=== PATIENT | female | born 1960 | race Caucasian/White ===

== ENCOUNTER 2016-07-04 05:27 | Observation (INO) | payer OTHER ==
[2016-06-28 11:26] LABS: HEMATOCRIT 40.5 % (36.0-48.0); HEMOGLOBIN 13.6 g/dL (12.0-16.0)
[2016-06-28 11:39] LABS: BUN (BLOOD UREA NITROGEN) 11 MG/DL (6-23); CALCIUM, SERUM 10.1 MG/DL (8.5-10.4); CHLORIDE, SERUM 100 MMOL/L (96-112); CO2 (CARBON DIOXIDE) 30 MMOL/L (24-34); GFR AFRICAN AMERICAN 84 ML/MIN (>=60); GFR NON AFRICAN AMERICAN 72 ML/MIN (>=60); GLUCOSE, SERUM 335 MG/DL (60-99); POTASSIUM, SERUM 4.2 MMOL/L (3.5-5.3); SODIUM, SERUM 136 MMOL/L (135-148)
--- NOTE | ~2016-07-04 | OP ---
Record Of Operation [facility] [address] [place]. [address] NAME: SUAD UREÑA : 62 STATUS : ADM IN [facility]#: [id number] AGE: 55 ADM/REG DATE : 07/04/16 MR#: [id number] REPORT SERV DATE: 07/04/16 DICTATED BY: RODOLFO RUGGIERO DATE: 07/04/16 REPORT STATUS : Draft TRANSCRIBED BY: MODMargi DATE: 07/04/16 DATE OF PROCEDURE: 07/04/2016 PREOPERATIVE DIAGNOSIS: Cervical spinal stenosis with disk herniation and radiculopathy at C6-7 on the left. POSTOPERATIVE DIAGNOSIS: Cervical spinal stenosis with disk herniation and radiculopathy at C6-7 on the left. PROCEDURE: 1. Microscopic and navigation-assisted surgery. 2. Anterior cervical diskectomy and foraminotomy, C6-7. 3. Anterior interbody cortical cancellous allograft, C6-7. 4. Anterior instrumentation with Venture plating, C6-7. SAND M[employer] OPERATOR FACING SAND: Gus Gresham. ANESTHESIA: General. ESTIMATED BLOOD LOSS: 10 mL. INDICATIONS FOR SURGERY: This is a 55-year-old female with neck shoulder and left arm pain. It has been intractable for several weeks and has been worsening quickly. The patient has had time, medication, and therapy, but nothing has helped. She has had plain x-rays, which revealed spondylosis particularly at C6-7. MRI shows stenosis and some soft disk herniation with a disk osteophyte complex, but there is some moderate degree of cord compression on the left side, but the foramina is severely narrowed on the left. With failure of conservative care and with the above findings, the patient was brought to surgery for the above procedure. Prior to surgery, risks, benefits, alternatives, and expectations had been explained in detail. Please note, also because of her large body habitus and the need to identify correct level of surgery intraoperatively as well as desire to carry out the safest and most precise dissection with least amount of radiation exposure, I feel the intraoperative navigation is mandatory. DESCRIPTION OF PROCEDURE: After identifying the patient in the preop holding area, antibiotic prophylaxis was given. Neurophysiology monitoring leads were inserted. The patient was brought to the operative suite. General anesthetic including endotracheal intubation was administered. She was placed supine on fluoroscopic Ash spine frame. Bony prominences were carefully padded. A small bolster was placed behind the shoulders. The scalp was painted with Betadine solution. [place] three-point fixation was attached to the skull using 60 pounds of torque in standard position. The [place] was attached to the Ash bed. The [employer] navigational registration frame was attached to the [place]. Isolation drapes were placed. The neck was scrubbed with Hibiclens solution. DuraPrep was Record Of Operation [address] [place]. [address] NAME: SUAD UREÑA : 62 STATUS : ADM IN PAT#: [id number] AGE: 55 ADM/REG DATE : 07/04/16 MR#: [id number] REPORT SERV DATE: 07/04/16 DICTATED BY: RODOLFO RUGGIERO DATE: 07/04/16 REPORT STATUS : Draft TRANSCRIBED BY: DANIEL DATE: 07/04/16 painted. Sterile drapes applied. Intraoperative CT scan with O-arm obtained, CT information used to register the navigational system. With navigational assistance, I identified C6-7. On the left side parallel to the disk space at C6-7, a 2.5 cm transverse skin incision using a Monroe-Lui technique was utilized. Platysma was incised in line with the skin incision. The superficial layer of the deep cervical fascia was released along the anterior border of the sternocleidomastoid. Blunt dissection was carried out to the retropharyngeal space where the longus colli muscles were subperiosteally elevated. After retractors were placed, the microscope was sterilely draped and used throughout the remainder of the procedure. With navigational assistance, we identified the left and right uncinate lateral boundary. A cutting mirlande was used to debride the an anterior osteophytes of the inferior C6 and superior C7. The disk space was widened with the [place] distractor pins that had been placed in the midbody. Diskectomy was carried out with curettes and rongeurs. As I moved from anterior to posterior, we continued to widen the disk space. The uncinate processes were very hypertrophied and we debrided those with a cutting bur as well as a 3 and 2 mm galina bur. The posterior longitudinal ligament was taken down and there was completely decompressing left side of the spinal cord and the foramen bilateral. Wide opening of the foramina was completed. The wound was irrigated. The width, depth, and height of the disk space was measured. A 7 mm wedge-shaped cortical cancellous allograft was inserted in the midline. Traction was released locking the graft in good position. Next, a 21 mm Venture plate was placed over the anterior bodies of C6 and C7. The four holes were drilled. The locking screws inserted providing rigid stability. Wounds were irrigated. No bleeding was noted. Intraoperative CT scan with O-arm was repeated due to the fact that we could not see on a regular C-arm image below C5. The intraoperative CT scan identified surgery had been at the C6-7 level and that there was good position of the implants and good religious of disk height. There was no bleeding or any abnormality. No drain was felt necessary. The platysma was closed with a running 3-0 Vicryl suture, subcutaneous tissue was closed with 3-0 Vicryl suture, and subcuticular 4-0 PDS suture was used for skin closure. Sterile dressings applied. The patient awakened, extubated, and taken to recovery room in satisfactory condition having tolerated the procedure well. KEITH/DANIEL Rodolfo Ruggiero D.O. / [id number] Record Of Operation [address] [address] NAME: SUAD UREÑA : 62 STATUS : ADM IN [facility]#: [id number] AGE: 55 ADM/REG DATE : 07/04/16 MR#: [id number] REPORT SERV DATE: 07/04/16 DICTATED BY: RODOLFO RUGGIERO DATE: 07/04/16 REPORT STATUS : Draft TRANSCRIBED BY: MODL DATE: 07/04/16 CC: Rodolfo Ruggiero D.O.
[~2016-07-04 05:27] MED LIST: AMARYL1 MG PO; BYSTOLIC20 MG PO; CLARIT10 PO; COZAAR100 MG PO; HUMALOG SC; INVOKANA300 MG PO; JANUMET1 TA1 PO; KLOR-CON 1010 MEQ PO; L40 PO; LANTUS SC; MOBIC15 MG PO; NORV25 PO; PRILOSEC40 MG PO; SYN112 PO; ULTRAM50 PO; VENTOLIN HFA INH; VIB100 PO; VITAMIN B-12 INJ IM; VITAMIN D1000 UNI1 PO
[2016-07-04 06:40] LABS: BUN (BLOOD UREA NITROGEN) 12 MG/DL (6-23); CALCIUM, SERUM 10.1 MG/DL (8.5-10.4); CHLORIDE, SERUM 101 MMOL/L (96-112); CO2 (CARBON DIOXIDE) 29 MMOL/L (24-34); CREATININE 0.88 MG/DL (0.55-1.02); GFR AFRICAN AMERICAN 86 ML/MIN (>=60); GFR NON AFRICAN AMERICAN 74 ML/MIN (>=60); GLUCOSE, SERUM 217 MG/DL (60-99); POTASSIUM, SERUM 4.6 MMOL/L (3.5-5.3); SODIUM, SERUM 136 MMOL/L (135-148)
[2016-07-04] MEDS ORDERED: LANTUSCART SC (16:17)
[2016-07-04] MEDS ORDERED: MAXIMUM D3 PO (16:23)
[2016-07-04] MEDS ORDERED: ACET500CAP PO (16:28)
[2016-07-04] MEDS ORDERED: TUMS E-X750 M2 PO (16:28)
[2016-07-04] MEDS ORDERED: MAGNESIUM CIT PO (16:29)
[2016-07-04] MEDS ORDERED: VISINE-A EYE AL15 ML OPH (16:30)
[2016-07-04] MEDS ORDERED: AFRIN15 NAS (16:31)
[2016-07-05] MEDS ORDERED: DIL4TAB PO (10:18)
[2016-07-05] MEDS ORDERED: METHOC500B PO (10:18)
== END 2016-07-05 12:22 | disposition home or self-care (01) ==
LOC: SDC 05:27 → SDC/OF 09:43 → 3SO 10:34
PROVIDERS: Orthopaedic Surgery Orthopaedic Surgery of the Spine
PROC: 0RG4070 Fusion of Cervicothoracic Vertebral Joint with Autologous Tissue Substitute, Anterior Approach, Anterior Column, Open Approach (ICD-10-PCS; 2016-07-04)
PROC: 0RG10A0 Fusion of Cervical Vertebral Joint with Interbody Fusion Device, Anterior Approach, Anterior Column, Open Approach (ICD-10-PCS; principal; 2016-07-04 07:15)
DX: M50.123 Cervical disc disorder at C6-C7 level with radiculopathy (principal); M48.02 Spinal stenosis, cervical region; G43.909 Migraine, unspecified, not intractable, without status migrainosus; I10 Essential (primary) hypertension; E78.5 Hyperlipidemia, unspecified; J45.909 Unspecified asthma, uncomplicated; M19.90 Unspecified osteoarthritis, unspecified site; K21.9 Gastro-esophageal reflux disease without esophagitis; K58.9 Irritable bowel syndrome, unspecified; E11.9 Type 2 diabetes mellitus without complications; E78.00 Pure hypercholesterolemia, unspecified; D64.9 Anemia, unspecified; E03.9 Hypothyroidism, unspecified; E66.01 Morbid (severe) obesity due to excess calories; Z90.49 Acquired absence of other specified parts of digestive tract; Z90.710 Acquired absence of both cervix and uterus; Z98.890 Other specified postprocedural states; Z87.891 Personal history of nicotine dependence
CPT/HCPCS: 80048; 82962; 85014; 85018; 87641; 88304; 88311; 93005; 96374; 96375; 96376; A9270-GY; C1713; C1768; G0378; J0690; J1170; J2250; J2405; J2710; J3010

== ENCOUNTER 2016-07-30 20:54 | Inpatient (IN) | payer OTHER ==
--- NOTE | ~2016-07-30 | EGD ---
EGD REPORT [facility] [address] [place]. [address] NAME: SUAD RAMIREZ : 62 STATUS : ADM Fish PAT#: [id number] AGE: 55 ADM/REG DATE : 07/30/16 MR#: [id number] REPORT SERV DATE: 08/02/16 DICTATED BY: JONATAN BIRMINGHAM DATE: 08/02/16 REPORT STATUS : Draft TRANSCRIBED BY: [employer] DATE: 08/02/16 [facility] Patient Name: Suad Ramirez Date of : 1960 Attending MD: JONATAN BIRMINGHAM, Procedure Date No Time: 08/02/2016 Procedure: Upper GI endoscopy Indications: Epigastric abdominal pain, Diarrhea, Nausea with vomiting Medicines: Propofol per Anesthesia Complications: No immediate complications. Estimated blood loss: None. Procedure: Pre-Anesthesia Assessment: - ASA Grade Assessment: IV - A patient with severe systemic disease that is a constant threat to life. After obtaining informed consent, the endoscope was passed under direct vision. Throughout the procedure, the patient's blood pressure, pulse, and oxygen saturations were monitored continuously. The GIF [id number] was introduced through the mouth, and advanced to the second part of duodenum. The upper GI endoscopy was accomplished with ease. The patient tolerated the procedure well. Findings: The examined esophagus was normal. The Z-line was found 42 cm from the incisors. Diffuse mild inflammation characterized by congestion (edema) and erythema was found in the gastric body and in the gastric antrum. Biopsies were taken with a cold forceps for histology. Estimated blood loss: none. The duodenal bulb and 2nd part of the duodenum were normal. Biopsies were taken with a cold forceps for evaluation of celiac disease. Estimated blood loss: none. Impression: - Normal esophagus. - Z-line 42 cm from the incisors. - Gastritis. Biopsied. - Normal duodenal bulb and 2nd part of the duodenum. Biopsied. Recommendation: - Return patient to [facility] for ongoing care. - Clear liquid diet today. - Continue present medications. - Tight control of blood glucose. Procedure Code(s): --- Professional --- EGD REPORT [facility] [address] [place]. [address] NAME: SUAD RAMIREZ : 62 STATUS : ADM Fish PAT#: [id number] AGE: 55 ADM/REG DATE : 07/30/16 MR#: [id number] REPORT SERV DATE: 08/02/16 DICTATED BY: JONATAN BIRMINGHAM DATE: 08/02/16 REPORT STATUS : Draft TRANSCRIBED BY: [employer] DATE: 08/02/16 [id number], Esophagogastroduodenoscopy, flexible, transoral; with biopsy, single or multiple Diagnosis Code(s): --- Professional --- K29.70, Gastritis, unspecified, without bleeding R10.13, Epigastric pain R19.7, Diarrhea, unspecified R11.2, Nausea with vomiting, unspecified CPT copyright 2013 [employer]. All rights reserved. The codes documented in this report are preliminary and upon icd 9 coder review may be revised to meet current compliance requirements. JONATAN BIRMINGHAM, 08/02/2016 1:41 PM This report has been signed electronically. Number of Addenda: 0 Note Initiated On: 08/02/2016 1:24 PM Scope Withdrawal Time 0 hours 0 minutes 0 seconds [address] [place] [address]
--- NOTE | ~2016-07-30 | IDS ---
Interim Discharge Summary [facility] [address] [place]. [address] NAME: SUAD UREÑA : 62 STATUS : ADM IN [facility]#: [id number] AGE: 55 ADM/REG DATE : 07/30/16 MR#: [id number] REPORT SERV DATE: 08/06/16 DICTATED BY: DATE: REPORT STATUS : Draft TRANSCRIBED BY: MODL DATE: 08/06/16 ADMISSION DATE: 07/30/2016 DISCHARGE DATE: The patient is admitted to the [facility]. CONSULTANTS: Dr. Do Umaña of Gastroenterology. CURRENT DIAGNOSES: 1. Intractable nausea and vomiting, epigastric abdominal pain, intermittent diarrhea- extensive evaluation, to be described below, nonrevealing of cause. Suspect gastric dysmotility and possible viral gastroenteritis/colitis. 2. Insulin-dependent diabetes mellitus type 2-uncontrolled with hemoglobin A1c 12.2. Improved control this admission. 3. Labile hypertension-with occasional systolic blood pressures in excess of 200, now improved. 4. Hypothyroidism-with elevated TSH, but normal free T4. Home levothyroxine dosage increased slightly this admission. 5. Recent cervical spine surgery for cervical spine degenerative disk disease. 6. History of asthma. 7. History of pancreatitis-no evidence of chronic pancreatic changes or acute pancreatitis this admission. 8. Low-grade temperature elevations-as high as 100 degrees. 9. History of arthritis. 10.Hypokalemia-improved with replacement. 11.Hypomagnesemia-improved with replacement. IMAGING AND DIAGNOSTICS: 1. Upper GI and small-bowel follow-through on 08/01 for intractable nausea and vomiting shows unremarkable appearance of the esophagus, stomach, and duodenum. Small bowel appears unremarkable. Small bowel transit time is normal at [address] abdomen and pelvis on 08/02 with contrast shows no acute GI or obstruction. Prior hysterectomy and prior cholecystectomy noted. No old films for comparison. Small amount of atelectasis in the left and right lung bases. 3. EGD on 08/[address] Do Umaña showed diffuse mild inflammation, characterized by congestion and erythema in the gastric body and gastric antrum. Biopsies were taken with cold forceps. Normal duodenal bulb and second part of the duodenum. 4. The patient also had CT abdomen and pelvis without contrast at [facility] prior to transfer, read with some mild nonspecific gastric wall thickening and no acute intra- abdominal process. PERTINENT LABORATORIES: Potassium values ranging from 2.9 to 3.7. Initial glucose values in the 300s, now consistently between 115 and 200. Creatinine value normal throughout the admission between 0.6 and 0.9. Liver enzymes normal. Amylase normal. Lipase normal. TSH 9.49 with free T4 of 1.05. Hemoglobin A1c 12.2. White blood cell counts ranging from 8.4 to 11, hemoglobin values normal, platelets 280 to 340. H pylori stool testing negative. Interim Discharge Summary [facility] [address] [address] NAME: SUAD UREÑA : 62 STATUS : ADM IN PAT#: [id number] AGE: 55 ADM/REG DATE : 07/30/16 MR#: [id number] REPORT SERV DATE: 08/06/16 DICTATED BY: DATE: REPORT STATUS : Draft TRANSCRIBED BY: MODL DATE: 08/06/16 Urinalysis on 07/31 showed trace ketones and glucose, but rare bacteria. No culture was obtained. Stool studies negative for C diff, negative for fecal white cells, negative stool culture. BRIEF HISTORY: For full details, please see the previously dictated history of present illness by Dr. Edison Chapin. This is a 55-year-old white female, who was accepted in transfer from [facility] where she had been admitted on 07/29 with intractable epigastric abdominal pain, nausea, vomiting, diarrhea. The patient reported that her symptoms had been present for approximately one month following cervical spine surgery with no specific precipitating or palliating factors. Her symptoms could not be controlled at [facility] with scheduled antiemetics, and a CT scan there was negative. She was felt to require higher level of care and GI evaluation, so was transferred to [facility] for this. HOSPITAL COURSE: The patient was admitted to [address] [place] [address] on IV fluids, p.r.n. antiemetics, and GI consultation was obtained. Dr. Do Umaña saw the patient on 07/31 and recommended an upper GI. This was done on 08/01 with results as above, normal. In the interim, stool studies were also obtained, and stool for H pylori was obtained as well. The stool studies were negative for any infectious causes of her symptoms. Dr. Umaña recommended an upper endoscopy on 08/02 again with relatively normal findings, except for some nonspecific gastritis. The patient was continued on her proton pump inhibitor at that point with recommendation to advance her diet. However, the patient continued to experience "excruciating" epigastric abdominal pain with any attempts at food more solid than liquids. Repeat CT abdomen and pelvis with contrast was obtained in this facility, again negative, and labs to include repeat lipase testing were not suggestive of an etiology of her symptoms. The patient does have a history of longstanding poorly controlled diabetes and there were upper GI series that did not suggest dysmotility, it is currently the most likely explanation for the patient's symptoms. The patient was placed on scheduled antiemetics and scheduled Phenergan for a period of time on 08/03 with marked improvement in her symptoms and essentially resolution of the epigastric pain, nausea, and vomiting. On 08/05, in order to avoid side effects associated with continuous Reglan therapy, this was changed to p.r.n. Her Phenergan was continued scheduled, and Zofran was changed to p.r.n. as the patient felt that the Phenergan was more effective for her. We attempted to advance her diet to soft, but she developed recurrent abdominal pain, nausea, vomiting on the evening of 08/05, carrying through to the morning of 08/06. When I evaluated her this morning, she looked unwell and stated that she was feeling "awful." At present, the nature of the recurrent symptoms is entirely unclear, unless it is related to gastroparesis or some other systemic issue. She did have a low-grade temperature elevation to 100 degrees overnight, so repeat urinalysis will be obtained as well as a chest Interim Discharge Summary [address] [address] NAME: SUAD UREÑA : 62 STATUS : ADM IN PAT#: [id number] AGE: 55 ADM/REG DATE : 07/30/16 MR#: [id number] REPORT SERV DATE: 08/06/16 DICTATED BY: DATE: REPORT STATUS : Draft TRANSCRIBED BY: MODL DATE: 08/06/16 x-ray. Given the normal stool studies and imaging thus far, there does not seem to be an acute indication for antibiotic therapy. In further discussion with the patient and her family, they would like a mesenteric Doppler obtained, which seems reasonable given the association of pain with oral intake. The patient has been treated this morning with recurrent doses of Phenergan, Zofran and we will restart p.r.n. Reglan and decrease her diet back to full liquids. DISPOSITION: To be determined by a colleague who will assume care of the patient tomorrow. LAZARUS/DANIEL Dain Rosa M.D. / [id number] CC: Kiana Thomas M.D.
--- NOTE | ~2016-07-30 | CN ---
Consultation Report [facility] [address] [place]. [address] NAME: SUAD RAMIREZ : 62 STATUS : ADM Fish PAT#: [id number] AGE: 55 ADM/REG DATE : 07/30/16 MR#: [id number] REPORT SERV DATE: 08/01/16 DICTATED BY: JONATAN UMAÑA DATE: 08/01/16 REPORT STATUS : Draft TRANSCRIBED BY: MODL DATE: 08/01/16 CONSULTATION DATE OF CONSULTATION: 07/31/2016 REASON FOR CONSULTATION: Nausea, vomiting, abdominal pain. HISTORY OF PRESENT ILLNESS: Ms. Ramirez is a 55-year-old female with a history of diabetes, hypertension, hypothyroidism, who presented with a several-day history of nausea, vomiting, abdominal pain. CT scan showed nondistended stomach, which was interpreted with increased wall thickening, but otherwise was negative. Liver enzymes have been normal. Lipase is normal. CBC is normal. TSH is rather elevated at 9.4, hemoglobin A1c is 12.2, and glucose at midnight was 250. She reports that she has episodes like this, but this has been the worst. She has never been diagnosed with gastroparesis. PAST MEDICAL HISTORY: Diabetes, hypertension, hypothyroidism, asthma. PAST SURGICAL HISTORY: Cervical diskectomy, , cholecystectomy, hysterectomy, tonsillectomy. ALLERGIES: NO KNOWN DRUG ALLERGIES. SOCIAL HISTORY: No smoking, alcohol, or drug use. FAMILY HISTORY: Diabetes, COPD, and coronary artery disease. PHYSICAL EXAMINATION: VITAL SIGNS: Patient is afebrile. Vital signs are stable. GENERAL: The patient is awake, alert, oriented x3, well developed, well nourished, in no acute distress. HEENT: Atraumatic, normocephalic. Anicteric. Mucous membranes moist. CARDIAC: S1, S2. CHEST: Clear. ABDOMEN: Soft, tender to palpation diffusely, but without any rebound or guarding. Bowel sounds normoactive. LABORATORY DATA: Reviewed as above. IMPRESSION AND PLAN: Nausea, vomiting, abdominal pain, edema, gastroparesis versus poorly controlled diabetes versus very elevated TSH of 9.4. CT scan reviewed with no acute changes. We will check an upper GI small bowel series for further evaluation, which is easy, although not as good as a substitute for a gastric emptying study. She has received medications that would affect a true gastric emptying study. Continue PPI. Will continue to follow with you. Consultation Report [facility] [id number] [place]. [address] NAME: SUAD RAMIREZ : 62 STATUS : ADM Fish PAT#: [id number] AGE: 55 ADM/REG DATE : 07/30/16 MR#: [id number] REPORT SERV DATE: 08/01/16 DICTATED BY: JONATAN UMAÑA DATE: 08/01/16 REPORT STATUS : Draft TRANSCRIBED BY: DANIEL DATE: 08/01/16 CS/DANIEL Jonatan Umaña MD / [id number] CC: Kiana Thomas M.D.
--- NOTE | ~2016-07-30 | HP ---
History And Physical [facility] [address] [place]. [address] NAME: SUAD RAMIREZ : 62 STATUS : ADM Fish PAT#: [id number] AGE: 55 ADM/REG DATE : 07/30/16 MR#: [id number] REPORT SERV DATE: 07/31/16 DICTATED BY: BRIAN ROSS DATE: 07/30/16 REPORT STATUS : Draft TRANSCRIBED BY: MODL DATE: 07/30/16 DATE OF ADMISSION: 07/30/2016 POINT OF ENTRY: Transfer from [facility] Inpatient Service. CHIEF COMPLAINT: Nausea, vomiting, and abdominal pain. HISTORY OF PRESENT ILLNESS: Ms. Ramirez is a 55-year-old female with history of insulin- dependent diabetes mellitus, type 2; hypertension; and hypothyroidism, who presents to the emergency department today with reports of intractable nausea, vomiting, abdominal pain, for the past three to four days. The patient recently underwent anterior cervical diskectomy and fusion by Dr. Muhammad in June. The patient states that since her surgery she has had troubles with persistent nausea and diarrhea with occasional episodes of emesis. She had been prescribed Zofran by Dr. Muhammad' office with some effect. Beginning on Saturday after she had a meal, she developed a 24 hour period of severe intractable nausea and vomiting with estimated emesis episodes every 30-45 minutes. On Saturday, she started to feel better and tried to eat some food, and unfortunately, that set off another episode of intractable nausea and vomiting that persisted until she presented to the [facility] Emergency Department on Saturday. After receipt of multiple antiemetics including Thorazine at [facility], the patient felt better and actually was quite sedated until awakening today when she again developed persistent nausea and vomiting prompting her transfer to [facility] for higher level of care for evaluation by Gastroenterology. 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 She does state she has uncontrolled diabetes mellitus, has pending endocrinology referral for uncontrolled insulin- dependent diabetes mellitus, type 2. Denies any known history of diabetic gastroparesis. The patient currently denies any fevers, night sweats, chills, chest pain, shortness of breath, cough, sputum production, wheezing, melena, hematochezia, hemoptysis, hematemesis, dysuria, and lower extremity edema. She does continue to report troubles with epigastric abdominal pain described as a burning in nature with associated nausea, vomiting, and profuse diarrhea. REVIEW OF SYSTEMS: Comprehensive review of systems otherwise negative unless listed in history of present illness. Initial evaluation at [facility] noted for a CT scan of the abdomen and pelvis that showed a nondistended thick walled stomach but otherwise the CT was unremarkable. Initial labs notable for a lipase that was within normal limits. Troponin was negative. EKG was negative. She did have a mild leukocytosis of 11,600. Her bicarb on her CMP was 18, but History And Physical [id number] [facility] [place]. [address] NAME: SUAD RAMIREZ : 62 STATUS : ADM Fish PAT#: [id number] AGE: 55 ADM/REG DATE : 07/30/16 MR#: [id number] REPORT SERV DATE: 07/31/16 DICTATED BY: BRIAN ROSS DATE: 07/30/16 REPORT STATUS : Draft TRANSCRIBED BY: DANIEL DATE: 07/30/16 otherwise, her transaminases were normal. She had an ABG performed for unclear reasons which showed a pH of 7.69 with a pCO2 of 18. She was started on IV fluids, antiemetics including Thorazine and IV Pepcid without given improvement and subsequently transferred over to our hospital. PREVIOUS MEDICAL HISTORY: 1. Uncontrolled insulin-dependent diabetes mellitus, type 2. Hemoglobin A1c is unknown at this time. 2. Hypertension. 3. Hypothyroidism. 4. Previous history of pancreatitis. 5. Asthma. 6. Cervical spinal stenosis with disk herniation radiculopathy. SURGICAL HISTORY: 1. . 2. Cholecystectomy. 3. Abdominal hysterectomy. 4. C6-C7 anterior cervical diskectomy and fusion. 5. Tonsillectomy. ALLERGIES: NO KNOWN DRUG ALLERGIES. HOME MEDICATIONS: Pending at time of dictation. SOCIAL HISTORY: Denies any tobacco, alcohol, or illicits. She currently works in [employer] for [employer]. FAMILY MEDICAL HISTORY: Mother with diabetes, COPD, and congestive heart failure. Father with osteoporosis. Siblings with various thyroid diseases including thyroid cancer. LABS AND IMAGING: All obtained from transfer records from [facility] Emergency Department. These were all admission labs and imaging from 02/29/2016: 1. White count 11.6, hemoglobin is 14.1, hematocrit is 43.0, and platelet count is 397. 2. Sodium is 136, potassium 3.4, chloride 94, carbon dioxide 18, BUN 18, creatinine 0.74, glucose is 392, calcium is 9.4, protein is 7.1, albumin is 3.9, bilirubin is 0.7, ALT is 15, AST 15, and alkaline phosphatase is 99. 3. Lipase is 51. 4. Troponin is negative. 5. ABG; pH is 7.69, pCO2 is 18, PO2 is 104, bicarb and base excess are not available to me at this time. 6. CT scan of the abdomen and pelvis shows a nondistended thick-walled stomach, but otherwise, no acute abdominal pelvic abnormality. PHYSICAL EXAMINATION: VITAL SIGNS: Temperature is 98.1 degrees Fahrenheit, pulse is 76, respirations 14, saturating 98% on room air, and blood pressure is 204/96. History And Physical [address] [address] NAME: SUAD RAMIREZ : 62 STATUS : ADM Fish PAT#: [id number] AGE: 55 ADM/REG DATE : 07/30/16 MR#: [id number] REPORT SERV DATE: 07/31/16 DICTATED BY: BRIAN ROSS DATE: 07/30/16 REPORT STATUS : Draft TRANSCRIBED BY: DANIEL DATE: 07/30/16 GENERAL: The patient is awake, alert, in no acute distress. Resting comfortably in bed. She is a well-developed, well-nourished, female. HEENT: Atraumatic and normocephalic. Slightly dry mucous membranes. Pupils are equal, round, reactive to light and accommodation. Extraocular eye movements intact. No scleral icterus. NECK: No jugular venous distention or carotid bruits. CARDIAC: Regular rate and rhythm. No murmurs or gallops. Normal S1, S2. LUNGS: Clear to auscultation bilaterally. No wheezes, rhonchi, or crackles. ABDOMEN: Soft, mildly tender to palpation over the epigastrium but otherwise no rebound, guarding, or rigidity. EXTREMITIES: Warm and perfused. No cyanosis, clubbing, or edema. SKIN: Warm and dry. PSYCH: Affect appropriate. NEURO: Alert and oriented x3. Cranial nerves 2 through 12 grossly intact. Speech is normal. Gait not assessed. ASSESSMENT: Ms. Ramirez is a 55-year-old female who presents with a three to four-day history of intractable nausea, vomiting, as well as epigastric abdominal pain in the setting of some chronic nausea and diarrhea. PROBLEM LIST: 1. Intractable nausea and vomiting. 2. Epigastric abdominal pain. 3. Diarrhea. 4. Insulin-dependent diabetes mellitus type 2 with hyperglycemia. 5. Hypertension. 6. Respiratory alkalosis. PLAN: 1. Intractable nausea and vomiting with abdominal pain. Differential is broad this time including esophagitis and gastritis as well as possible gastroparesis as well as possible food poisoning. Pancreatitis was essentially ruled out with CT pelvis as well as normal lipase at [facility]. She is status post cholecystectomy. We will consult Gastroenterology for assistance for likely upper endoscopy in the morning. Place the patient on PPI IV b.i.d. Provide supportive care with IV fluids, antiemetics, and pain control. Check EEG to be unremarkable. Workup for possible gastroparesis may need to be pursued. 2. Insulin-dependent diabetes mellitus type 2 with hyperglycemia, initially placed the patient on level 3 insulin sliding scale. Check hemoglobin A1c. Continue the patient's home long-acting insulin once confirmed by Pharmacy. 3. Respiratory alkalosis. Unclear etiology at this time. Repeating admission labs including ABG. 4. Hypertension. Continue patient's home medications once confirmed. In the meantime, IV hydralazine p.r.n. for elevated blood pressures. 5. Diarrhea. Checking stool studies including stool culture, C. diff, and ova parasites. 6. DVT prophylaxis. Lovenox subcu. History And Physical [address] [place]. [address] NAME: SUAD RAMIREZ : 62 STATUS : ADM Fish PAT#: [id number] AGE: 55 ADM/REG DATE : 07/30/16 MR#: [id number] REPORT SERV DATE: 07/31/16 DICTATED BY: BRIAN ROSS DATE: 07/30/16 REPORT STATUS : Draft TRANSCRIBED BY: DANIEL DATE: 07/30/16 CODE STATUS: The patient wished to be full code. IZZYB/MODL Brian Ross MD / [id number] CC: Kiana Jimenez M.D.
--- NOTE | ~2016-07-30 | DS ---
Discharge Summary [address] [place]. [address] NAME: SUAD UREÑA : 62 STATUS : DIS IN PAT#: [id number] AGE: 55 ADM/REG DATE : 07/30/16 MR#: [id number] REPORT SERV DATE: 08/13/16 DICTATED BY: DAKOTA DUNN DATE: 08/12/16 REPORT STATUS : Draft TRANSCRIBED BY: MODL DATE: 08/12/16 ADMISSION DATE: 07/30/2016 DISCHARGE DATE: 08/11/2016 DISCHARGE DIAGNOSES: 1. Intractable nausea and vomiting with epigastric abdominal pain and intermittent diarrhea. The patient has had extensive evaluation including upper GI and small bowel followthrough as well as CT of the abdomen and pelvis, EGD, and CT of the head, which were all very benign. EGD only showed erythema in the gastric body and gastric antrum. 2. Insulin-dependent diabetes type 2, uncontrolled, with hemoglobin A1c of 12.2. 3. Labile hypertension. 4. Hypothyroidism. 5. Recent cervical spine surgery for cervical spine degenerative disk disease. 6. History of asthma. 7. History of pancreatitis. 8. History of arthritis. 9. Hypokalemia and hypomagnesemia. 10.Low-grade temperatures without any evidence for ongoing infection. CONSULTANTS: Dr. Umaña of Gastroenterology. PROCEDURES: EGD which was performed on 08/02/2016. The EGD showed diffuse mild inflammation with congestion and erythema in the gastric body and gastric antrum. The patient had normal duodenal exam. HOSPITAL COURSE: This is a 55-year-old lady who was admitted to the hospital with intractable nausea, vomiting, and diarrhea as well as abdominal pain. The patient has had a fairly prolonged hospital stay; thus, please refer to H and P by Dr. Mp Chapin as well as interim discharge summary by Dr. Rosa. In summary, the patient was initially admitted with an observation due to the nausea, vomiting, and diarrhea. It has been almost impossible to control her nausea and vomiting during the whole time the patient has been here in the hospital. The patient has had extensive workup including upper GI and small- bowel followthrough as well as CT of the abdomen and pelvis and an EGD. The patient eventually also had CT of the head to rule out any possible central causes for nausea and vomiting. It is quite evident that there is a psychiatric component to the patient's intractable nausea and vomiting as the patient was seen to drink water just to be able to vomit on occasion. Nonetheless, the patient did have real episodes of nausea and vomiting that was uncontrolled. In the end, the patient's nausea and vomiting was controlled with scheduled IV Zofran as well as IV Phenergan and IV Reglan. The patient also was given Klonopin for baseline anxiety control along with Protonix. The patient was also given pain control for the abdominal pain. Eventually, with more counseling and more encouragement, the patient's nausea was able to be controlled somewhat. Every time, there was an attempt for discharge, the patient's symptoms would get worse and it has been a challenging hospital course to say the least. Medically, however, the patient has been very stable. The patient has remained afebrile and hemodynamically stable. The patient's labs have also been stable with no evidence of ongoing infection or any other hematologic or electrolytic disturbances. Discharge Summary [address] [address] NAME: SUAD UREÑA : 62 STATUS : DIS IN PAT#: [id number] AGE: 55 ADM/REG DATE : 07/30/16 MR#: [id number] REPORT SERV DATE: 08/13/16 DICTATED BY: DAKOTA DUNN DATE: 08/12/16 REPORT STATUS : Draft TRANSCRIBED BY: DANIEL DATE: 08/12/16 The patient did have a couple of episodes of elevated blood temperatures as well as elevated blood pressures along with nausea and vomiting episodes, but they were quick to subside once the patient's nausea and vomiting spell subsided. The patient is now being discharged home finally after such a prolonged hospital stay for symptomatic control of nausea and vomiting. The patient was seen by Dr. Umaña from GI, who actually recommended that the patient be followed with an outpatient clinic in [place] for her intractable nausea and vomiting. DISPOSITION: Home. DISCHARGE MEDICATIONS: 1. Zofran ODT 4 to 8 mg p.o. q.4 hours p.r.n. 2. Phenergan 6.25 to 12.5 mg p.o. q.4 hours p.r.n. 3. Scopolamine patch every 3 days. 4. Protonix 40 mg p.o. b.i.d. 5. Percocet 5/325 one tablet p.o. q.6 hours p.r.n. 6. Carafate 1 g p.o. with meals. 7. Klonopin 0.25 mg p.o. b.i.d. Otherwise, no medication changes. FOLLOWUP: 1. Please follow up with PCP in the next one to two weeks. 2. Please follow up with Dr. Umaña as instructed. 3. Please follow up with outpatient [place] [facility] as needed. A total of 40 minutes spent in coordinating this patient's discharge including extensive counseling regarding her nausea control at home. DICTATED BY: Dakota Dunn MD YSC/MODL Dakota Dunn MD / [id number] CC: MD Maty Fajardo M.D.
[~2016-07-30 20:54] MED LIST changes: +ACET500CAP PO; +AFRIN15 NAS; +DIL4TAB PO; +LANTUSCART SC; +MAGNESIUM CIT PO; +MAXIMUM D3 PO; +METHOC500B PO; +TUMS E-X750 M2 PO; +VISINE-A EYE AL15 ML OPH
[2016-07-30] MEDS ORDERED: METHOC500B PO (22:18)
[2016-07-30] MEDS ORDERED: ZOFRAN4 PO (22:19)
[2016-07-31 00:06] LABS: BASOPHILS 0.5 %; BASOPHILS ABSOLUTE 0.05 10/3/uL (0.0-0.16); EOSINOPHILS 0.3 %; EOSINOPHILS ABSOLUTE 0.03 10/3/uL (0.0-0.53); HEMATOCRIT 38.1 % (36.0-48.0); HEMOGLOBIN 12.6 g/dL (12.0-16.0); IMMATURE GRANULOCYTES 0.2 %; IMMATURE GRANULOCYTES ABSOLUTE 0.02 10/3/uL (0.0-0.11); LYMPHOCYTES 31.5 %; LYMPHOCYTES ABSOLUTE 3.11 10/3/uL (0.67-4.30); MEAN CORPUS HGB CONC 33.1 g/dL (32.0-36.0); MEAN CORPUSCULAR HEMOGLOB 28.8 pg (26.0-34.0); MEAN CORPUSCULAR VOLUME 87.2 fL (80-100); MONOCYTES 7.4 %; MONOCYTES ABSOLUTE 0.73 10/3/uL (0.21-1.20); NEUTROPHILS 60.1 %; NEUTROPHILS ABSOLUTE 5.92 10/3/uL (2.02-8.40); PLATELET COUNT 341 10/3/uL (150-400); RBC DISTRIBUTION WIDTH 12.7 % (12.0-16.0); RED CELL COUNT 4.37 10/6/uL (4.0-5.6); WHITE BLOOD CELLS 9.9 10/3/uL (4.5-10.5)
[2016-07-31 00:07] LABS: MANUAL DIFF NO %
[2016-07-31 00:18] LABS: A/G RATIO 0.8 (0.7-1.9); ALBUMIN 2.9 G/DL (3.5-5.0); ALKALINE PHOSPHATASE 97 U/L (45-117); BUN (BLOOD UREA NITROGEN) 10 MG/DL (6-23); CHLORIDE, SERUM 105 MMOL/L (96-112); CREATININE 0.84 MG/DL (0.55-1.02); FREE T4 1.05 NG/DL (0.76-1.46); GFR AFRICAN AMERICAN 91 ML/MIN (>=60); GFR NON AFRICAN AMERICAN 79 ML/MIN (>=60); GLOBULIN 3.6 G/DL (2.5-4.1); GLUCOSE, SERUM 249 MG/DL (60-99); POTASSIUM, SERUM 3.8 MMOL/L (3.5-5.3); SGOT(AST) 13 U/L (5-40); SGPT(ALT) 17 U/L (5-65); SODIUM, SERUM 137 MMOL/L (135-148); TOTAL BILIRUBIN 0.5 MG/DL (0-1.2); TOTAL PROTEIN 6.5 G/DL (6.0-8.5)
[2016-07-31 00:20] LABS: CALCIUM, SERUM 8.6 MG/DL (8.5-10.4); CO2 (CARBON DIOXIDE) 24 MMOL/L (24-34)
[2016-07-31 09:02] LABS: ASCORBIC ACID (UR NOT ORDER) NEG (NEG); BILIRUBIN, URINE NEGATIVE (NEG); KETONE, URINE TRACE MG/DL (NEG); LEUKOCYTE ESTERASE(NOT OR NEG (NEG); WBC (NOT ORDERED) (RFLEX) 2 (0-5)
[2016-08-01 05:36] LABS: BASOPHILS 0.5 %; BASOPHILS ABSOLUTE 0.04 10/3/uL (0.0-0.16); EOSINOPHILS 2.7 %; EOSINOPHILS ABSOLUTE 0.23 10/3/uL (0.0-0.53); HEMATOCRIT 37.6 % (36.0-48.0); HEMOGLOBIN 12.7 g/dL (12.0-16.0); IMMATURE GRANULOCYTES 0.2 %; IMMATURE GRANULOCYTES ABSOLUTE 0.02 10/3/uL (0.0-0.11); LYMPHOCYTES ABSOLUTE 3.71 10/3/uL (0.67-4.30); MANUAL DIFF NO %; MEAN CORPUS HGB CONC 33.8 g/dL (32.0-36.0); MEAN CORPUSCULAR HEMOGLOB 28.9 pg (26.0-34.0); MEAN CORPUSCULAR VOLUME 85.6 fL (80-100); MEAN PLATELET VOLUME 8.5 fL (9.2-13.0); MONOCYTES 7.7 %; MONOCYTES ABSOLUTE 0.65 10/3/uL (0.21-1.20); NEUTROPHILS 44.9 %; NEUTROPHILS ABSOLUTE 3.79 10/3/uL (2.02-8.40); PLATELET COUNT 286 10/3/uL (150-400); RBC DISTRIBUTION WIDTH 12.7 % (12.0-16.0); RED CELL COUNT 4.39 10/6/uL (4.0-5.6); WHITE BLOOD CELLS 8.4 10/3/uL (4.5-10.5)
[2016-08-01 05:46] LABS: CALCIUM, SERUM 9.4 MG/DL (8.5-10.4); CHLORIDE, SERUM 104 MMOL/L (96-112); CO2 (CARBON DIOXIDE) 24 MMOL/L (24-34); CREATININE 0.62 MG/DL (0.55-1.02); GFR AFRICAN AMERICAN 118 ML/MIN (>=60); GFR NON AFRICAN AMERICAN 102 ML/MIN (>=60); SODIUM, SERUM 139 MMOL/L (135-148)
[2016-08-01 05:47] LABS: BUN (BLOOD UREA NITROGEN) 5 MG/DL (6-23); GLUCOSE, SERUM 83 MG/DL (60-99); POTASSIUM, SERUM 2.9 MMOL/L (3.5-5.3)
[2016-08-02 05:22] LABS: BASOPHILS 0.1 %; BASOPHILS ABSOLUTE 0.01 10/3/uL (0.0-0.16); EOSINOPHILS 0 %; HEMATOCRIT 39.9 % (36.0-48.0); HEMOGLOBIN 13.8 g/dL (12.0-16.0); IMMATURE GRANULOCYTES 0.3 %; IMMATURE GRANULOCYTES ABSOLUTE 0.03 10/3/uL (0.0-0.11); LYMPHOCYTES 23.6 %; LYMPHOCYTES ABSOLUTE 2.59 10/3/uL (0.67-4.30); MEAN CORPUS HGB CONC 34.6 g/dL (32.0-36.0); MEAN CORPUSCULAR HEMOGLOB 29.1 pg (26.0-34.0); MEAN PLATELET VOLUME 8.9 fL (9.2-13.0); MONOCYTES 3.9 %; MONOCYTES ABSOLUTE 0.43 10/3/uL (0.21-1.20); NEUTROPHILS 72.1 %; NEUTROPHILS ABSOLUTE 7.93 10/3/uL (2.02-8.40); PLATELET COUNT 336 10/3/uL (150-400); RBC DISTRIBUTION WIDTH 12.7 % (12.0-16.0); RED CELL COUNT 4.75 10/6/uL (4.0-5.6)
[2016-08-02 05:29] LABS: MANUAL DIFF NO %
[2016-08-02 05:35] LABS: BUN (BLOOD UREA NITROGEN) 7 MG/DL (6-23); CALCIUM, SERUM 8.7 MG/DL (8.5-10.4); CHLORIDE, SERUM 100 MMOL/L (96-112); CO2 (CARBON DIOXIDE) 21 MMOL/L (24-34); CREATININE 0.75 MG/DL (0.55-1.02); GFR AFRICAN AMERICAN 105 ML/MIN (>=60); GFR NON AFRICAN AMERICAN 90 ML/MIN (>=60); GLUCOSE, SERUM 252 MG/DL (60-99); POTASSIUM, SERUM 3.4 MMOL/L (3.5-5.3); SODIUM, SERUM 134 MMOL/L (135-148)
[2016-08-03 05:07] LABS: A/G RATIO 0.7 (0.7-1.9); ALBUMIN 2.7 G/DL (3.5-5.0); ALKALINE PHOSPHATASE 94 U/L (45-117); BASOPHILS 0.4 %; BASOPHILS ABSOLUTE 0.04 10/3/uL (0.0-0.16); BUN (BLOOD UREA NITROGEN) 10 MG/DL (6-23); CALCIUM, SERUM 8.6 MG/DL (8.5-10.4); CHLORIDE, SERUM 102 MMOL/L (96-112); CO2 (CARBON DIOXIDE) 25 MMOL/L (24-34); CREATININE 0.87 MG/DL (0.55-1.02); EOSINOPHILS 1.1 %; EOSINOPHILS ABSOLUTE 0.11 10/3/uL (0.0-0.53); GFR AFRICAN AMERICAN 88 ML/MIN (>=60); GFR NON AFRICAN AMERICAN 76 ML/MIN (>=60); GLOBULIN 3.8 G/DL (2.5-4.1); GLUCOSE, SERUM 211 MG/DL (60-99); HEMATOCRIT 39.8 % (36.0-48.0); HEMOGLOBIN 13.2 g/dL (12.0-16.0); IMMATURE GRANULOCYTES 0.2 %; IMMATURE GRANULOCYTES ABSOLUTE 0.02 10/3/uL (0.0-0.11); LYMPHOCYTES 41.6 %; MEAN CORPUS HGB CONC 33.2 g/dL (32.0-36.0); MEAN CORPUSCULAR HEMOGLOB 28.5 pg (26.0-34.0); MONOCYTES 6.5 %; MONOCYTES ABSOLUTE 0.64 10/3/uL (0.21-1.20); NEUTROPHILS 50.2 %; NEUTROPHILS ABSOLUTE 4.95 10/3/uL (2.02-8.40); PLATELET COUNT 309 10/3/uL (150-400); POTASSIUM, SERUM 3.2 MMOL/L (3.5-5.3); RBC DISTRIBUTION WIDTH 13.1 % (12.0-16.0); RED CELL COUNT 4.63 10/6/uL (4.0-5.6); SGOT(AST) 10 U/L (5-40); SGPT(ALT) 14 U/L (5-65); SODIUM, SERUM 135 MMOL/L (135-148); TOTAL BILIRUBIN 0.6 MG/DL (0-1.2); TOTAL PROTEIN 6.5 G/DL (6.0-8.5); WHITE BLOOD CELLS 9.9 10/3/uL (4.5-10.5)
[2016-08-03 05:08] LABS: MANUAL DIFF NO %
[2016-08-04 06:29] LABS: BASOPHILS 0.8 %; BASOPHILS ABSOLUTE 0.08 10/3/uL (0.0-0.16); EOSINOPHILS 2.4 %; EOSINOPHILS ABSOLUTE 0.25 10/3/uL (0.0-0.53); HEMATOCRIT 38.6 % (36.0-48.0); HEMOGLOBIN 12.7 g/dL (12.0-16.0); IMMATURE GRANULOCYTES 0.2 %; IMMATURE GRANULOCYTES ABSOLUTE 0.02 10/3/uL (0.0-0.11); LYMPHOCYTES 45.7 %; LYMPHOCYTES ABSOLUTE 4.68 10/3/uL (0.67-4.30); MANUAL DIFF NO %; MEAN CORPUS HGB CONC 32.9 g/dL (32.0-36.0); MEAN CORPUSCULAR HEMOGLOB 28.7 pg (26.0-34.0); MEAN CORPUSCULAR VOLUME 87.1 fL (80-100); MEAN PLATELET VOLUME 8.9 fL (9.2-13.0); MONOCYTES 7.4 %; MONOCYTES ABSOLUTE 0.76 10/3/uL (0.21-1.20); NEUTROPHILS 43.5 %; NEUTROPHILS ABSOLUTE 4.45 10/3/uL (2.02-8.40); PLATELET COUNT 286 10/3/uL (150-400); RBC DISTRIBUTION WIDTH 13.2 % (12.0-16.0); RED CELL COUNT 4.43 10/6/uL (4.0-5.6); WHITE BLOOD CELLS 10.2 10/3/uL (4.5-10.5)
[2016-08-04 06:37] LABS: BUN (BLOOD UREA NITROGEN) 9 MG/DL (6-23); CALCIUM, SERUM 8.6 MG/DL (8.5-10.4); CHLORIDE, SERUM 106 MMOL/L (96-112); CO2 (CARBON DIOXIDE) 25 MMOL/L (24-34); CREATININE 0.86 MG/DL (0.55-1.02); GFR AFRICAN AMERICAN 89 ML/MIN (>=60); GFR NON AFRICAN AMERICAN 77 ML/MIN (>=60); GLUCOSE, SERUM 143 MG/DL (60-99); POTASSIUM, SERUM 3.5 MMOL/L (3.5-5.3); SODIUM, SERUM 137 MMOL/L (135-148)
[2016-08-05 06:08] LABS: BASOPHILS ABSOLUTE 0.09 10/3/uL (0.0-0.16); EOSINOPHILS 3.7 %; EOSINOPHILS ABSOLUTE 0.33 10/3/uL (0.0-0.53); HEMATOCRIT 38.4 % (36.0-48.0); HEMOGLOBIN 12.6 g/dL (12.0-16.0); IMMATURE GRANULOCYTES 0.2 %; IMMATURE GRANULOCYTES ABSOLUTE 0.02 10/3/uL (0.0-0.11); LYMPHOCYTES 55.1 %; LYMPHOCYTES ABSOLUTE 4.96 10/3/uL (0.67-4.30); MEAN CORPUS HGB CONC 32.8 g/dL (32.0-36.0); MEAN CORPUSCULAR HEMOGLOB 28.6 pg (26.0-34.0); MEAN CORPUSCULAR VOLUME 87.3 fL (80-100); MEAN PLATELET VOLUME 9.1 fL (9.2-13.0); MONOCYTES 7.9 %; MONOCYTES ABSOLUTE 0.71 10/3/uL (0.21-1.20); NEUTROPHILS 32.1 %; NEUTROPHILS ABSOLUTE 2.89 10/3/uL (2.02-8.40); PLATELET COUNT 326 10/3/uL (150-400); RBC DISTRIBUTION WIDTH 13.2 % (12.0-16.0)
[2016-08-05 06:17] LABS: MANUAL DIFF NO %
[2016-08-05 06:20] LABS: BUN (BLOOD UREA NITROGEN) 7 MG/DL (6-23); CALCIUM, SERUM 9.2 MG/DL (8.5-10.4); CHLORIDE, SERUM 105 MMOL/L (96-112); CO2 (CARBON DIOXIDE) 24 MMOL/L (24-34); CREATININE 0.87 MG/DL (0.55-1.02); GFR AFRICAN AMERICAN 88 ML/MIN (>=60); GFR NON AFRICAN AMERICAN 76 ML/MIN (>=60); POTASSIUM, SERUM 3.5 MMOL/L (3.5-5.3); SODIUM, SERUM 136 MMOL/L (135-148)
[2016-08-05 06:21] LABS: GLUCOSE, SERUM 111 MG/DL (60-99)
[2016-08-06 13:16] LABS: BASOPHILS 0.5 %; BASOPHILS ABSOLUTE 0.06 10/3/uL (0.0-0.16); EOSINOPHILS 0.1 %; EOSINOPHILS ABSOLUTE 0.01 10/3/uL (0.0-0.53); IMMATURE GRANULOCYTES 0.5 %; IMMATURE GRANULOCYTES ABSOLUTE 0.06 10/3/uL (0.0-0.11); LYMPHOCYTES 16.5 %; LYMPHOCYTES ABSOLUTE 1.89 10/3/uL (0.67-4.30); MEAN CORPUS HGB CONC 33.9 g/dL (32.0-36.0); MEAN CORPUSCULAR HEMOGLOB 29.1 pg (26.0-34.0); MEAN CORPUSCULAR VOLUME 85.7 fL (80-100); MEAN PLATELET VOLUME 8.8 fL (9.2-13.0); MONOCYTES 4.6 %; MONOCYTES ABSOLUTE 0.53 10/3/uL (0.21-1.20); NEUTROPHILS 77.8 %; NEUTROPHILS ABSOLUTE 8.92 10/3/uL (2.02-8.40); PLATELET COUNT 366 10/3/uL (150-400); RBC DISTRIBUTION WIDTH 13.1 % (12.0-16.0); RED CELL COUNT 5.16 10/6/uL (4.0-5.6); WHITE BLOOD CELLS 11.5 10/3/uL (4.5-10.5)
[2016-08-06 13:19] LABS: HEMATOCRIT 44.2 % (36.0-48.0); MANUAL DIFF NO %
[2016-08-06 13:25] LABS: BUN (BLOOD UREA NITROGEN) 7 MG/DL (6-23); CALCIUM, SERUM 9.7 MG/DL (8.5-10.4); CHLORIDE, SERUM 101 MMOL/L (96-112); CO2 (CARBON DIOXIDE) 23 MMOL/L (24-34); CREATININE 0.93 MG/DL (0.55-1.02); GFR AFRICAN AMERICAN 81 ML/MIN (>=60); GFR NON AFRICAN AMERICAN 70 ML/MIN (>=60); POTASSIUM, SERUM 3.7 MMOL/L (3.5-5.3); SODIUM, SERUM 136 MMOL/L (135-148)
[2016-08-06 13:26] LABS: GLUCOSE, SERUM 225 MG/DL (60-99)
[2016-08-06 15:43] LABS: ASCORBIC ACID (UR NOT ORDER) NEG (NEG); BILIRUBIN, URINE NEGATIVE (NEG); KETONE, URINE 20 MG/DL (NEG); LEUKOCYTE ESTERASE(NOT OR NEG (NEG); WBC (NOT ORDERED) (RFLEX) < 1 (0-5)
[2016-08-11] MEDS ORDERED: MAGOX4 PO (11:17)
[2016-08-11] MEDS ORDERED: PCET PO (11:18)
[2016-08-11] MEDS ORDERED: TRANSSCOP TOP (11:19)
[2016-08-11] MEDS ORDERED: PROTONIX PO (11:19)
[2016-08-11] MEDS ORDERED: KLONOPIN WAF0.25 MG PO (11:19)
[2016-08-11] MEDS ORDERED: PR12.5 PO (11:20)
[2016-08-11] MEDS ORDERED: REG PO (18:32)
[2016-08-11] MEDS ORDERED: SUCR PO (18:33)
== END 2016-08-11 19:15 | disposition home or self-care (01) | DRG 392 ==
LOC: 4SO 20:54
PROVIDERS: Hospitalist; Internal Medicine; Internal Medicine Gastroenterology
PROC: 0DB98ZX Excision of Duodenum, Via Natural or Artificial Opening Endoscopic, Diagnostic (ICD-10-PCS; 2016-08-02)
PROC: 0DB68ZX Excision of Stomach, Via Natural or Artificial Opening Endoscopic, Diagnostic (ICD-10-PCS; principal; 2016-08-02 13:29)
DX: K30 Functional dyspepsia (principal); E87.3 Alkalosis; K31.84 Gastroparesis; E11.65 Type 2 diabetes mellitus with hyperglycemia; E83.42 Hypomagnesemia; E11.43 Type 2 diabetes mellitus with diabetic autonomic (poly)neuropathy; R11.2 Nausea with vomiting, unspecified; Z79.4 Long term (current) use of insulin; K29.70 Gastritis, unspecified, without bleeding; I10 Essential (primary) hypertension; E03.9 Hypothyroidism, unspecified; J45.909 Unspecified asthma, uncomplicated; E87.6 Hypokalemia
CPT/HCPCS: 70450; 71010; 74177; 74249; 80048; 80053; 81001; 82150; 82962; 83036; 83690; 83735; 84132; 84439; 84443; 85025; 87045; 87046; 87046-59; 87205; 87328; 87329; 87338; 87493; 87493-59; 87899; 87899-59; 88305; 89055; 93005; 93975; A9270-GY; C9113; J0360; J0780; J1170; J2405; J2550; J2765; J3475; Q9967